=== PATIENT | female | born 1935 | race Caucasian/White ===

== ENCOUNTER 2016-12-28 20:55 | Emergency (ER) | payer MEDICARE ==
[2016-12-28 21:09] VITALS: BP 147/69; PULSE 89; RESP 16; TEMP 97.8; O2SAT 99
[2016-12-28] MEDS ORDERED: CARB25TA9 PO (21:31)
[2016-12-28] MEDS ORDERED: MAPA500T13 PO (21:31)
[2016-12-28] MEDS ORDERED: COQ-50CA2 (21:31)
[2016-12-28] MEDS ORDERED: MULTTAB67 PO (21:31)
[2016-12-28] MEDS ORDERED: VITA10002 PO (21:31)
[2016-12-28] MEDS ORDERED: WELLTAB39 PO (21:31)
[2016-12-28] MEDS ORDERED: CARB50TA3 PO (21:31)
[2016-12-28] MEDS ORDERED: OMEP20TA PO (21:31)
[2016-12-28] MEDS ORDERED: CLON1TAB PO (21:31)
[2016-12-28] MEDS ORDERED: CHOL1CAP14 PO (21:31)
[2016-12-28] MEDS ORDERED: LISI20TA3 PO (21:31)
[2016-12-28] MEDS ORDERED: PAXI30TA7 PO (21:31)
--- NOTE | 2016-12-28 22:00 | RADRPT ---
EXAM DATE/TIME: 12/28/2016 21:41 [facility] COMPARISON: No previous studies available for comparison. INDICATIONS : Fall, left wrist pain. MEDICAL HISTORY : None. SURGICAL HISTORY : None. ENCOUNTER: Initial ACUITY: 1 day PAIN SCORE: 8/10 LOCATION: Left wrist FINDINGS: No fracture or acute appearing malalignment seen of the left wrist. 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 There is borderline w idening of the scapholunate interval, measures about 3 mm in the imaged position. There also appears to be some dorsal tilt of the lunate. CONCLUSION: 1. No acute fracture or acute appearing malalignment of the left wrist. 2. Radial sided degenerative changes. 3. 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 Ankit Carney MD on December 28, 2016 at 21:57 Board Certified Radiologist. This report was verified electronically.
--- NOTE | 2016-12-28 22:00 | RADRPT ---
EXAM DATE/TIME: 12/28/2016 21:46 [facility] COMPARISON: No previous studies available for comparison. INDICATIONS : Fall, right shoulder pain. MEDICAL HISTORY : None. SURGICAL HISTORY : None. ENCOUNTER: Initial ACUITY: 1 day PAIN SCORE: 8/10 LOCATION: Right shoulder FINDINGS: Multiple view examination of the right shoulder demonstrates no evidence of fracture or dislocation. The glenohumeral and acromioclavicular joints are maintained. There is normal range of motion betwe en internal and external rotation. Bony mineralization is normal. CONCLUSION: No fracture or subluxation of the right shoulder. Ankit Carney MD on December 28, 2016 at 21:59 Board Certified Radiologist. This report was verified electronically.
[2016-12-28 22:04] VITALS: BP 179/79; PULSE 85; RESP 16; O2SAT 99
--- NOTE | 2016-12-28 22:27 | PD ---
HPI Chief Complaint: Fall Time Seen by Provider: 22:20 Travel History International Travel<30 days: No Contact w/Intl Traveler<30days: No Traveled to known affect area: No History of Present Illness HPI Patient 81-year-old female presents emergency department after a slip and fall down 3 steps. Patient states she was "goofing around" on the steps and lost her footing and fell. She is complaining of right shoulder pain and left wrist pain. She denies any head injury denies any blood thinner use, denies any chest pain shortness breath abdominal pain back pain. Denies any loss of consciousness. PFSH Past Medical History Anxiety: Yes Depression: Yes Diminished Hearing: No GERD: Yes Hypertension: Yes Parkinson's Disease: Yes Tetanus Vaccination: Unknown Influenza Vaccination: Yes ?: Not Past Surgical History Appendectomy: Yes Hysterectomy: Yes Joint Replacement: Yes (R KNEE) Social History Alcohol Use: No Tobacco Use: No Substance Use: No Allergies-Medications (Allergen,Severity, Reaction): Coded Allergies: No Known Allergies (Unverified , 12/28/16) Reported Meds & Prescriptions Reported Meds & Active Scripts Active Reported Carbidopa-Levodopa ER 50-200 Mg Tab 1 Tab PO HS Omeprazole 20 Mg Tab 20 Mg PO DAILY Mapap Extra Strength (Acetaminophen) 500 Mg Tab 1,000 Mg PO DAILY PRN Coq-10 (Coenzyme Q10 (Ubidecarenone)) 50 Mg Cap Clonazepam 1 Mg Tab 1 Mg PO BID D3 Maximum Strength (Cholecalciferol) 5,000 Unit Cap 5,000 Units PO DAILY Multiple Vitamin 1 Tab 1 Tab PO DAILY Carbidopa-Levodopa 25-100 Mg Tab 1 Tab PO Q8HR Paxil (Paroxetine HCl) 30 Mg Tab 30 Mg PO DAILY Lisinopril-Hctz 20-25 Mg Tab 1 Tab PO DAILY Vitamin B-12 (Cyanocobalamin) 1,000 Mcg Tab 1,000 Mcg PO DAILY Wellbutrin Xl 24 HR (Bupropion HCl) 300 Mg Tab 300 Mg PO DAILY Review of Systems Except as stated in HPI: all other systems reviewed are Neg Physical Exam Narrative GENERAL: Well-nourished, well-developed patient. SKIN: Focused skin assessment warm/dry. HEAD: Normocephalic. Atraumatic EYES: No scleral icterus. No injection or drainage. NECK: Supple, trachea midline. No JVD or lymphadenopathy. CARDIOVASCULAR: Regular rate and rhythm without murmurs, gallops, or rubs. RESPIRATORY: Breath sounds equal bilaterally. No accessory muscle use. GASTROINTESTINAL: Abdomen soft, non-tender, nondistended. MUSCULOSKELETAL: Extremities are atraumatic, patient laboratory in emergency department, full nontender range of motion at the hips knees elbows wrists shoulders. Patient does have some tenderness with range of motion of the right shoulder but it is full. No midline CT or L-spine tenderness. BACK: Nontender without obvious deformity. No CVA tenderness. Data Data Last Documented VS Vital Signs Date Time Temp Pulse Resp B/P (MAP) Pulse Ox O2 Delivery O2 Flow Rate FiO2 12/28/16 22:04 85 16 179/79 (112) 99 Room Air 12/28/16 21:09 97.8 Orders Orders Shoulder, Complete (>2vws) (12/28/16 ) Wrist, Complete ([id number]) (12/28/16 ) Acetaminophen (Tylenol) (12/28/16 22:45) Lisinopril (Prinivil) (12/29/16 04:30) MDM Medical Decision Making Medical Screen Exam Complete: Yes Emergency Medical Condition: Yes Differential Diagnosis Shoulder injury, wrist injury, fall Narrative Course patient 81-year-old female presents emergency department for evaluation of right shoulder pain and left wrist pain after mechanical fall from 3 steps up. No injury to head or neck. X-rays were obtained and are reassuring. Discussed symptomatic management home and returned ED criteria. Diagnosis Primary Impression: Shoulder pain, right Qualified Codes: M25.511 - Pain in right shoulder Additional Impression: Wrist pain, left Disposition: 01 DISCHARGE HOME Condition: Stable Kevin Morrell MD Dec 28, 2016 22:27
[2016-12-28] MEDS ORDERED: ACETAMINOPHEN 500 MG CPLT PO ONE (22:45)
[2016-12-29] MEDS ORDERED: LISINOPRIL 20 MG TAB PO ONE ×2 (04:30→07:00)
== END 2016-12-29 04:43 | disposition home or self-care (01) ==
LOC: NEPC 20:55
DX: M25.511 Pain in right shoulder (principal); M25.532 Pain in left wrist; W10.9XXA Fall (on) (from) unspecified stairs and steps, initial encounter; I10 Essential (primary) hypertension; G20 Parkinson's disease; K21.9 Gastro-esophageal reflux disease without esophagitis
CPT/HCPCS: 73030; 73110; 99284